=== PATIENT | female | born 1945 | race Caucasian/White ===

== ENCOUNTER → 2018-02-17 | Outpatient (CLI) | payer MEDICARE, OTHER ==
--- NOTE | 2018-02-17 15:25 | RAD ---
EXAM: Right hip, 2 views. HISTORY: Pain. COMPARISON: None. FINDINGS: Frontal and frog-leg views of the right hip are obtained. There is severe hip joint space narrowing with severe subchondral sclerosis, large superior acetabular and femoral head subchondral cysts and marginal osteophytosis. There is associated remodeling of the superior acetabulum and femoral head no fracture is seen. IMPRESSION: Severe end-stage osteoarthritis of the right hip with associated bony remodeling. Electronically signed by: Archana Rowe MD (02/17/2018 3:21 PM) [facility]
== END | disposition home or self-care (01) ==
LOC: RAD 14:32
PROVIDERS: ATTEND Family Medicine
DX: M16.11 Unilateral primary osteoarthritis, right hip (principal); M85.68 Other cyst of bone, other site
CPT/HCPCS: 73502

== ENCOUNTER → 2018-03-15 | Outpatient (CLI) | payer MEDICARE, OTHER ==
[~2018-03-15] MED LIST: BISO5TAB2 PO; DIPH25CA58 PO; HYDR-971 PO; IMIP25TA35 PO; NAPR220T70 PO; NIFE60TA PO; OMEP40CA5 PO; POTA10TA12 PO
[2018-03-15 09:34] LABS: BASO # 0.1 x10^3/uL (0.0-0.2); BASO % 1 % (0-3); EOS # 0.1 x10^3/uL (0.0-0.7); EOS % 2 % (0-3); HEMATOCRIT 40.3 % (36.0-47.0); HEMOGLOBIN 13.7 g/dL (12.0-15.5); LYMPH # 1.5 x10^3/uL (1.0-4.8); LYMPH % 23 % (24-48); MEAN CORPUSCULAR HEMOGLOBIN 31 pg (25-35); MEAN CORPUSCULAR HGB CONC 34 g/dL (31-37); MEAN CORPUSCULAR VOLUME 90 fL (79-100); MONO # 0.6 x10^3/uL (0.0-1.1); MONO % 9 % (0-9); NEUT # 4.1 x10^3uL (1.8-7.7); NEUT % 66 % (31-73); PLATELET COUNT 354 x10^3/uL (140-400); RED BLOOD COUNT 4.46 x10^6/uL (3.50-5.40); RED CELL DISTRIBUTION WIDTH 13.1 % (11.5-14.5); WHITE BLOOD COUNT 6.3 x10^3/uL (4.0-11.0)
[2018-03-15 09:41] LABS: ALBUMIN 3.6 g/dL (3.4-5.0); CALCIUM 10.7 mg/dL (8.5-10.1); CREATININE 1.2 mg/dL (0.6-1.0); GFR 44.4; POTASSIUM 4.5 mmol/L (3.5-5.1)
[2018-03-15 09:44] LABS: PROTHROMBIN TIME PATIENT 12.3 SEC (11.7-14.0)
[2018-03-15 13:02] LABS: BILIRUBIN,URINE NEGATIVE (NEG); CLARITY,URINE CLEAR; COLOR,URINE YELLOW; NITRITE,URINE NEGATIVE (NEG); PH,URINE 6.5; PROTEIN,URINE NEGATIVE (NEG-TRACE)
--- NOTE | 2018-03-15 13:13 | EKG ---
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
[2018-03-15 13:21] LABS: BACTERIA,URINE 0 /HPF (0-FEW); RBC,URINE 0 /HPF (0-2); SQUAMOUS EPITHELIAL CELL,UR FEW /LPF; WBC,URINE 0 /HPF (0-4)
--- NOTE | 2018-03-15 16:39 | RAD ---
CHEST PA LATERAL Clinical indications: pre op for right hip replacement on 03/29/18 history of hypertension COMPARISON: None available. Findings: No acute lung infiltrate or pleural effusion or pulmonary edema or lung mass or pneumothorax is seen. The heart size, pulmonary vasculature, mediastinum and both albina are unremarkable. The osseous structures appear intact. Impression: No acute radiographic abnormality is seen. Electronically signed by: Kurt Aguila MD (03/15/2018 4:36 PM) [facility]
== END | disposition home or self-care (01) ==
LOC: SURGPAT 13:50
PROVIDERS: ATTEND Orthopaedic Surgery Sports Medicine
DX: Z01.818 Encounter for other preprocedural examination (principal); M16.11 Unilateral primary osteoarthritis, right hip
CPT/HCPCS: 36415; 71046; 80048; 81001; 82040; 85025; 85610; 85651; 85730; 87641; 93005

== ENCOUNTER 2018-03-29 08:28 | Inpatient (IN) | payer MEDICARE ==
[2018-03-29] VITALS (8 sets, daily range): BP systolic 105–132; BP diastolic 47–68
[~2018-03-29] VITALS: Ht 157.5 cm; Wt 83.3 kg
[~2018-03-29 08:28] MED LIST changes: +HYDROcodone/APAP 7.5/325MG 1 TAB TABLET PO PRN; +HYDROmorphone 2 MG/ML VIAL IV PRN; +IV RINGERS,LACTATED 1000ML 1,000 ML IV SCH; +LIDOCAINE 1% PF 2 ML VIAL. ID PRN; +LIDOCAINE 2% PF Vial for OR 5 ML VIAL. ONE; +MELOXICAM 7.5 MG TABLET PO PRN; +MORPHINE SULFATE 2 MG/ML VIAL. IV PRN; +MORPHINE SULFATE 5 MG, KETOROLAC 30MG VIAL 30 MG, ROPIVacaine 0.5% PF 60 ML, EPINEPHrin... INT ART ONE; +ONDANSETRON PF 4 MG/2 ML VIAL. IV PRN; +PROCHLORPERAZINE 10 MG/2 ML VIAL. IV PRN; +PROPOFOL 20 ML IV ONE; +ROCURONIUM 50 MG/5 ML VIAL. ONE; +SUCCINYLCHOLINE 200 MG/10 ML VIAL. ONE; +TRANEXAMIC ACID 1,000 MG in IV NS 50ML -- 1ST BAG INJ ONE; +TRANEXAMIC ACID 1,000 MG in IV NS 50ML -- 2ND BAG INJ ONE; +TV=100ml MORPHINE 5 MG, KETOROLAC 30 MG, ROPIVacaine 0.5% PF 60 ML, EPINEPH... INT ART ONE; +fentaNYL PF VIAL 100 MCG/2 ML VIAL IV PRN; +fentaNYL PF VIAL 100 MCG/2 ML VIAL ONE
[2018-03-29] MEDS ORDERED: oxyCODONE/APAP 5/325 1 TAB TABLET PO PRN (09:45)
[2018-03-29] MEDS ORDERED: fentaNYL PF VIAL 100 MCG/2 ML VIAL IV PRN ×2 (09:45)
[2018-03-29] MEDS ORDERED: diphenhydrAMINE 50 MG/ML VIAL IV PRN (09:45)
[2018-03-29] MEDS ORDERED: DEXTROSE 50% 25 GM / 50ML DISP.SYRIN. IV PRN (09:45)
[2018-03-29] MEDS ORDERED: PROCHLORPERAZINE 5 MG TABLET. PO PRN (09:45)
[2018-03-29] MEDS ORDERED: MORPHINE SULFATE 10 MG/ML VIAL. IV PRN (09:45)
[2018-03-29] MEDS ORDERED: METOCLOPRAMIDE HCL 10 MG/2 ML VIAL. IV PRN (09:45)
[2018-03-29] MEDS ORDERED: ACETAMINOPHEN 325 MG TABLET. PO PRN (09:45)
[2018-03-29] MEDS ORDERED: MORPHINE SULFATE 2 MG/ML VIAL. IV PRN (09:45)
[2018-03-29] MEDS ORDERED: oxyCODONE/APAP 7.5/325 1 TAB TABLET PO PRN (09:45)
[2018-03-29] MEDS ORDERED: traMADol 50 MG TABLET PO PRN ×2 (09:45)
[2018-03-29] MEDS ORDERED: PROCHLORPERAZINE 10 MG/2 ML VIAL. IV PRN (09:45)
[2018-03-29] MEDS ORDERED: HYDROcodone/APAP 10/325 1 TAB TABLET PO PRN (09:45)
[2018-03-29] MEDS ORDERED: 0.9 % SODIUM CHLORIDE 10 ML DISP.SYRIN. IV PRN (09:45)
[2018-03-29] MEDS ORDERED: MORPHINE SULFATE 4 MG/ML VIAL. IV PRN ×2 (09:45)
[2018-03-29] MEDS ORDERED: diphenhydrAMINE HCL 25 MG CAPSULE PO PRN (09:45)
[2018-03-29] MEDS ORDERED: CALCIUM CARBONATE 500 MG TAB.CHEW PO PRN (09:45)
[2018-03-29] MEDS ORDERED: ZOLPIDEM 5 MG TABLET. PO PRN (09:45)
[2018-03-29 10:14] LABS: PROTHROMBIN TIME PATIENT 12.7 SEC (11.7-14.0)
[2018-03-29] MEDS ORDERED: ONDANSETRON PF 4 MG/2 ML VIAL. ONE (10:37)
[2018-03-29] MEDS ORDERED: DEXAMETHASONE SOD PHOS 20 MG/5 ML VIAL. ONE (10:37)
[2018-03-29] MEDS ORDERED: DESFLURANE 61 TO 120 MINUTES IH ONE (10:37)
[2018-03-29] MEDS ORDERED: ePHEDrine PF IN SALINE 50 MG/5 ML DISP.SYRIN IV ONE (10:43)
--- NOTE | 2018-03-29 12:07 | PDOC4 ---
Operative Note Operative Note Date of procedure: 03/29/2018 Surgeon: Yosef Mack Furniture Stainer: Jaguar Grubbs APRN Preoperative diagnosis: Advanced primary right hip degenerative joint disease Postoperative diagnosis: Same Procedure performed: Right total hip arthroplasty Anesthesia: Gen. Blood loss: 150mL Complications: none Components inserted: [employer] size 5 standard offset anthology femoral component, 52 mm R3 shell, 36 posteriorly directed elevated polyethylene liner, 36-3 cobalt chrome femoral head Findings: Advanced primary degenerative joint disease of right hip Reason for procedure: Patient is very pleasant female who presented to my outpatient orthopedic surgery clinic with complaints of severe and progressive right hip pain. Clinical and radiographic examination were consistent with the above preoperative diagnosis and after she had tried and failed conservative therapies, we had a discussion of the risks, benefits, alternatives to total hip arthroplasty and she wished to proceed. Description of procedure: Patient was greeted in the preoperative holding area by myself for the correct extremity was verified and marked. She was taken to the operative suite and her antibiotics were started as she was brought back. Once in the operating room, she was transferred gently supine to the operating room table and underwent successful induction of a general anesthetic. She was then laid in the lateral decubitus position with the right side up and secured to the bed with our hip positioning devices. After this, the right lower extremity and hip were prepped and draped in our usual sterile fashion including an Ioban Joice. Standard preoperative timeout was then conducted. I palpated and marked surface anatomy and janae a line from my standard posterolateral skin incision. I incised skin with a scalpel and dissected subcutaneous tissue with electrocautery and cauterized bleeders as a were encountered. Identified the fascia vielka of the thigh and used a Dasilva elevator to sweep aside adherent subcutaneous tissues tissue for later identification and repair. Fascia was then incised in line with the skin incision and placed our Charnley retractor. I swept bursal tissue posteriorly and identified the quadratus and piriformis and took these down with electrocautery, taking the piriformis for later repair. The operative field was a little tight, I released 1 cm of the gluteus jeremie to help facilitate exposure.The hip capsule was identified and arthrotomy performed in a Z-plasty type incision. After this, the hip was dislocated. I palpated and marked reproducible landmarks the greater and lesser as well as center femoral head and measured for offset and length. I then measured 1 cm proximal to the lesser trochanter made my neck cut there protecting the posterior aspect with Homans. The bone was delivered from the operative field. Her acetabular was was inspected and I placed my acetabular retractors. Identified the transverse acetabular ligament and excised the soft tissue from the floor of the acetabulum. I then began reaming and reamed up to the above size corresponding to her cup, this gave a good circumferential punctate bleeding bony bed. I then irrigated out the operative field and impacted my cup in a position referencing the transverse acetabular ligament, bridgeport anatomy, and crossbar attachment. I then palpated for her greater sciatic notch and placed a screw into the posterior column. I then irrigated out the operative field again and impacted my cup in a position with the elevation directed posteriorly. After this, the acetabular retractors were removed and my proximal femoral elevator was position and the as was the leg to allow exposure of the proximal femur. I used a cookie cutting osteotome followed by canal finding reamer. I then began broaching and broached up to the above size which gave a good fit and fill. I then trialed various head and neck sizes and felt the above combination gave the best stability, range of motion and leg length. I then removed the trial femoral components and impacted my stem into position and then trialed the head sizes again. I selected the above size as I felt gave the best range of motion and stability and leg length. I then irrigated out the operative field again and reduced the hip. It should be noted I did thoroughly irrigate the femoral canal prior to impacting my stem. With the hip reduced, I again checked for any impingement, there was none. I then closed capsule with simple interrupted #2 Ethibond. Piriformis was reapproximated through drill holes. Quadratus was repaired with [id number] Ethibond, as was the gluteus jeremie tendon.. After this, injected my susan- Incisional pain injection.. The fascia was closed with running #2 Quill. Inverted interrupted 20 and a multilayered fashion was used for subcutaneous tissues tissue and running 4-0 Monocryl in a subarticular fashion was used for skin. All counts correct 2 prior wound closure. No complications. Patient tolerated surgery well. The conclusion the surgery, she was laid supine and transferred gently supine to the hospital bed and taken to PACU in stable and extubated condition. Postoperative plan is admit her to the joint center for DVT and antibiotic prophylaxis. Shell begin her rehabilitation. We will follow along with her postoperative course. YOSEF MACK II, MD Mar 29, 2018 12:07
[2018-03-29] MEDS: fentaNYL PF VIAL 100 MCG/2 ML VIAL IV PRN ×2 (12:47→13:16)
--- NOTE | 2018-03-29 12:52 | RAD ---
Indication: Postop right hip surgery TECHNIQUE: 2 views of the right hip COMPARISON: None FINDINGS: Status post total right hip hypoplastic. No acute fractures. Mild left hip joint osteoarthritis. Soft tissue emphysema in the right lateral thigh right thigh soft tissue surgical drain IMPRESSION: Expected postoperative changes from recent right hip arthroplasty. Electronically signed by: Wayne Sandra DO (03/29/2018 12:49 PM) [facility]
[2018-03-29] MEDS: IMIPRAMINE 25 MG TABLET PO SCH ×2 (14:58→20:31)
[2018-03-29] MEDS ORDERED: WARFARIN 7.5 MG TABLET. PO ONE (16:00)
[2018-03-29] MEDS: POTASSIUM CHLORIDE 10 MEQ TABLET.ER. PO SCH (16:21)
[2018-03-29] MEDS: FERROUS SULFATE 325 MG TABLET. PO SCH (16:21)
[2018-03-29] MEDS: IV DEXTROSE 5 %-0.45 % NACL 1,000 ML IV SCH ×2 (19:34→22:49)
[2018-03-29] MEDS: CELECOXIB 100 MG CAPSULE. PO SCH (20:31)
[2018-03-30 03:00] VITALS: BP 116/54
[2018-03-30 05:16] LABS: PROTHROMBIN TIME PATIENT 18.1 SEC (11.7-14.0)
[2018-03-30] MEDS: IV DEXTROSE 5 %-0.45 % NACL 1,000 ML IV SCH ×2 (05:34→15:34)
[2018-03-30] MEDS ORDERED: MAGNESIUM HYDROXIDE 2,400 MG/30 ML ORAL.SUSP. PO PRN (06:00)
[2018-03-30 06:30] VITALS: BP 133/63
[2018-03-30 06:38] VITALS: BP 103/50
[2018-03-30] MEDS: PANTOPRAZOLE 40 MG TABLET.DR. PO SCH (07:08)
--- NOTE | 2018-03-30 09:05 | CONS ---
DATE OF CONSULTATION: 03/29/2018 CHIEF COMPLAINT AND HISTORY OF PRESENT ILLNESS: This 72-year-old white female is well known to me from years of followup in the office. She is admitted at this point in time for end-stage osteoarthritis of the right hip for replacement. PAST MEDICAL HISTORY: Remarkable for hypertension, panic attacks, osteoarthritis. MEDICATIONS: Brought with the patient, listed on the computer and have been addressed. ALLERGIES: She has no known drug allergies. SOCIAL HISTORY: She is nonsmoker, nondrinker, does not abuse drugs. , lives at home with her . 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 FAMILY HISTORY: Positive for longevity. REVIEW OF SYSTEMS: Primarily remarkable only for pain in the limb with right hip pain. PHYSICAL EXAMINATION: GENERAL: She is well-developed, well-nourished white female, a little bit anxious, but in no acute distress. VITAL SIGNS: Stable. She is afebrile. HEAD, EYES, EARS, NOSE AND THROAT: Unremarkable. NECK: Supple, without adenopathy or thyromegaly. CHEST: Clear to auscultation and percussion. HEART: Regular rate and rhythm without S3, S4, or murmur. ABDOMEN: Soft, nontender, without hepatosplenomegaly or masses. EXTREMITIES: Reveal decreased range of motion of the right hip with external and internal rotation with pain caused by the same. NEUROLOGIC: She is intact. IMPRESSION: 1. End-stage osteoarthritis, right hip replacement. 2. Hypertension. 3. History of panic disorder. PLAN: She is okay for surgery. We will continue her regular home medicines postoperatively and follow along. LATASHA DOMINGUEZ MD DR: VISHAL/fran JOB#: [id number] / [id number]
[2018-03-30] MEDS: ATENOLOL 50 MG TABLET. PO SCH (09:20)
[2018-03-30] MEDS: FERROUS SULFATE 325 MG TABLET. PO SCH ×2 (09:20→17:20)
[2018-03-30] MEDS: MULTIVITAMIN with MINERAL TABLET. PO SCH (09:20)
[2018-03-30] MEDS: SENNOSIDES/DOCUSATE 8.6/50MG TABLET. PO SCH (09:20)
[2018-03-30] MEDS: CELECOXIB 100 MG CAPSULE. PO SCH ×2 (09:20→20:29)
[2018-03-30] MEDS: POTASSIUM CHLORIDE 10 MEQ TABLET.ER. PO SCH ×2 (09:20→17:20)
[2018-03-30] MEDS: IMIPRAMINE 25 MG TABLET PO SCH ×3 (09:26→20:30)
[2018-03-30] MEDS: HYDROcodone/APAP 7.5/325MG 1 TAB TABLET PO PRN ×3 (09:38→20:30)
[2018-03-30] MEDS ORDERED: WARFARIN 2 MG TABLET. PO ONE (16:00)
[2018-03-30] MEDS ORDERED: BISACODYL 10 MG SUPP.RECT. PR PRN (16:00)
--- NOTE | 2018-03-30 16:08 | PATHOLOGY ---
[facility] Accession Number: [id number] . 01 Material submitted: . RIGHT HIP BONE . 01 Clinician provided ICD-10: M16.11 . 01 Clinical history: . None provided . 02 Diagnosis: Femoral head and portion of femoral neck, right total hip arthroplasty: - Advanced degenerative arthritis, with focal subarticular cystic degeneration and fibrosis. . (JPM:business management consultant; 03/30/2018) MBR/03/30/2018 . 02 Electronically signed: . Junito Julien MD, Pathologist NPI- [id number] . 01 Gross description: . The specimen is received in formalin, labeled "Reina Thomas, right hip bone" and consists of a femoral head measuring 4.9 x 4.6 x 4.0 cm with neck measuring 1.5 x 4.3 cm. The articular surface is pink-brown, roughened, and granular with multiple areas of eburnation measuring up to 2.7 cm. Osteophytes are present. Sectioning reveals yellow-lopez cut surfaces with a cyst measuring 0.7 x 0.6 cm. A member service representative section is submitted in A1 following decalcification. (SDY; 03/29/2018) SYU/SYU . 02 Pathologist provided ICD-10: M16.11 . 02 CPT . 706382, 110688 Specimen Comment: A courtesy copy of this report has been sent to Specimen Comment: [phone], . Specimen Comment: Report sent to / DR DOMINGUEZ Specimen Comment: A duplicate report has been generated due to demographic updates. Performed at: [address], [place], [place] [id number] MD Vladimir Fitzgerald MD Phone: [phone] Performed at: 02 [facility] [address] [place], [place] [id number] MD Junito Julein MD Phone: [phone]
[2018-03-30 18:43] VITALS: BP 119/56
--- NOTE | 2018-03-31 00:03 | PN ---
DATE: 03/30/2018 LOCATION: She is room in [facility]. SUBJECTIVE: The patient is awake, alert, using the bathroom with help of the nurse, still feels like standing on her right hip. The pain has gone, but she does have decreased motion of raising and up. She voices understanding of the hip precautions. OBJECTIVE: VITAL SIGNS: Stable. GENERAL: She is afebrile. She is awake and alert. CHEST: Clear. HEART: Regular. ABDOMEN: Benign. LABORATORY DATA: INR is 1.6 this morning. IMPRESSION: 1. Status post right hip replacement. 2. Hypertension. 3. Panic disorder. PLAN: Continue present care with anticoagulation ongoing, therapies encouraged as well as the hip precautions. LATASHA DOMINGUEZ MD DR: VISHAL/fran JOB#: [id number] / [id number]
[2018-03-31 05:37] LABS: HEMATOCRIT 30.6 % (36.0-47.0); HEMOGLOBIN 10.6 g/dL (12.0-15.5)
[2018-03-31 05:47] LABS: PROTHROMBIN TIME PATIENT 19.1 SEC (11.7-14.0)
[2018-03-31] MEDS: PANTOPRAZOLE 40 MG TABLET.DR. PO SCH (06:45)
--- NOTE | 2018-03-31 07:23 | PDOC ---
ORTHO PROGRESS NOTES Subjective Patient with no new complaints this morning. States pain rated at 1. Post-op Day: 2 Procedure R DYLAN Vitals Vital Signs Date Time Temp Pulse Resp B/P (MAP) Pulse Ox O2 Delivery O2 Flow Rate FiO2 03/30/18 21:30 18 Room Air 03/30/18 20:30 96 03/30/18 18:43 97.5 80 119/56 (77) 97.5 Labs Laboratory Tests Test 03/29/18 09:25 03/30/18 04:25 03/31/18 04:45 Prothrombin Time 12.7 SEC (11.7-14.0) 18.1 SEC (11.7-14.0) 19.1 SEC (11.7-14.0) Prothromb Time International Ratio 1.0 (0.8-1.1) 1.6 (0.8-1.1) 1.7 (0.8-1.1) Activated Partial Thromboplast Time 22 SEC (24-38) Hemoglobin 10.6 g/dL (12.0-15.5) Hematocrit 30.6 % (36.0-47.0) Mean Corpuscular Hemoglobin Concent 35 g/dL (31-37) Laboratory Tests Test 03/31/18 04:45 Hemoglobin 10.6 g/dL (12.0-15.5) Hematocrit 30.6 % (36.0-47.0) Mean Corpuscular Hemoglobin Concent 35 g/dL (31-37) Prothrombin Time 19.1 SEC (11.7-14.0) Prothromb Time International Ratio 1.7 (0.8-1.1) Assessment and Plan N/V intact distally. dressing dry and intact. moviing toes and feet on request. calf soft and nontender continue PT home tomorrow. DALE QUINONEZ APRN Mar 31, 2018 07:23
[2018-03-31 07:24] VITALS: BP 109/56
[2018-03-31] MEDS: FERROUS SULFATE 325 MG TABLET. PO SCH ×2 (08:45→16:47)
[2018-03-31] MEDS: SENNOSIDES/DOCUSATE 8.6/50MG TABLET. PO SCH (08:45)
[2018-03-31] MEDS: MULTIVITAMIN with MINERAL TABLET. PO SCH (08:45)
[2018-03-31] MEDS: IMIPRAMINE 25 MG TABLET PO SCH ×3 (08:45→21:18)
[2018-03-31] MEDS: CELECOXIB 100 MG CAPSULE. PO SCH ×2 (08:46→21:18)
[2018-03-31] MEDS: HYDROcodone/APAP 7.5/325MG 1 TAB TABLET PO PRN ×2 (08:48→12:53)
[2018-03-31] MEDS: POTASSIUM CHLORIDE 10 MEQ TABLET.ER. PO SCH ×2 (08:49→16:47)
[2018-03-31] MEDS: ATENOLOL 50 MG TABLET. PO SCH (08:49)
[2018-03-31] MEDS ORDERED: WARFARIN 3 MG TABLET. PO ONE (16:00)
--- NOTE | 2018-03-31 16:30 | DISCH ---
DISCHARGE INSTRUCTIONS Condition on Discharge Condition on Discharge: Stable Activity After Discharge Activity Instructions for Disc: Activity as tolerated Bathing Instructions: Shower-keep dressing dry Weight Bearing Status after Di: As tolerated Diet after Discharge Diet after Discharge: Regular Wound Incision Care Wound/Incision Care: Ice to area for comfort, Keep wound/cast CDI, Do not change dressing Contacting the DRBimal after DC Call your doctor for: Concerns you may have Follow-Up Follow up with: [facility] in 2wks Warfarin Follow-Up Warfarin Follow UP: Pharmacy BAYLEE MACK II, MD Mar 31, 2018 16:30
--- NOTE | 2018-03-31 16:48 | PN ---
DATE: 03/31/2018 She is in room 454. SUBJECTIVE: The patient is awake and alert, getting ready to eat breakfast, feels a lot of tightness in her hip, but the pain preoperatively has gone, did well with therapy yesterday. OBJECTIVE: VITAL SIGNS: Stable. She is afebrile. GENERAL: She is awake and alert. CHEST: Clear. HEART: Regular. ABDOMEN: Benign. NEUROVASCULAR: The right leg is intact. LABORATORY DATA: Hemoglobin is 10.6. INR is 1.7. IMPRESSION: 1. Status post right total hip replacement. 2. Hypertension. 3. Panic disorder. PLAN: Encourage therapy. Continue anticoagulation. Anticipate discharge probably as early as tomorrow. LATASHA DOMINGUEZ MD DR: VISHAL/fran JOB#: [id number] / [id number]
[2018-03-31 18:13] VITALS: BP 126/43
[2018-04-01 06:00] VITALS: BP 103/48
[2018-04-01] MEDS: PANTOPRAZOLE 40 MG TABLET.DR. PO SCH (06:11)
[2018-04-01 07:09] LABS: HEMATOCRIT 31.8 % (36.0-47.0); HEMOGLOBIN 10.9 g/dL (12.0-15.5)
[2018-04-01 07:32] LABS: PROTHROMBIN TIME PATIENT 19.1 SEC (11.7-14.0)
[2018-04-01] MEDS: CELECOXIB 100 MG CAPSULE. PO SCH (08:48)
[2018-04-01] MEDS: POTASSIUM CHLORIDE 10 MEQ TABLET.ER. PO SCH (08:48)
[2018-04-01] MEDS: FERROUS SULFATE 325 MG TABLET. PO SCH (08:48)
[2018-04-01] MEDS: MULTIVITAMIN with MINERAL TABLET. PO SCH (08:49)
[2018-04-01] MEDS: IMIPRAMINE 25 MG TABLET PO SCH ×2 (08:54→14:23)
[2018-04-01] MEDS: SENNOSIDES/DOCUSATE 8.6/50MG TABLET. PO SCH (08:55)
--- NOTE | 2018-04-01 08:55 | PDOC ---
ORTHO PROGRESS NOTES Subjective She feels comfortable and ready to go home. She called her pharmacy to discuss anticoagulation pricing. Vitals Vital Signs Date Time Temp Pulse Resp B/P (MAP) Pulse Ox O2 Delivery O2 Flow Rate FiO2 04/01/18 06:00 97.6 70 20 103/48 (66) 97 Room Air 97.6 Labs Laboratory Tests Test 03/31/18 04:45 04/01/18 06:20 Hemoglobin 10.6 g/dL (12.0-15.5) 10.9 g/dL (12.0-15.5) Hematocrit 30.6 % (36.0-47.0) 31.8 % (36.0-47.0) Mean Corpuscular Hemoglobin Concent 35 g/dL (31-37) 34 g/dL (31-37) Prothrombin Time 19.1 SEC (11.7-14.0) 19.1 SEC (11.7-14.0) Prothromb Time International Ratio 1.7 (0.8-1.1) 1.7 (0.8-1.1) Laboratory Tests Test 04/01/18 06:20 Hemoglobin 10.9 g/dL (12.0-15.5) Hematocrit 31.8 % (36.0-47.0) Mean Corpuscular Hemoglobin Concent 34 g/dL (31-37) Prothrombin Time 19.1 SEC (11.7-14.0) Prothromb Time International Ratio 1.7 (0.8-1.1) Notes She is awake and alert and sitting in chair. Dressing is intact. Normal motor and sensation distally in her right lower extremity is present. Assessment and Plan She will be discharged home. We will get her started on outpatient PT. She will be on Xarelto for 1 month BAYLEE MACK II, MD Apr 01, 2018 08:55
[2018-04-01] MEDS: ATENOLOL 50 MG TABLET. PO SCH (08:56)
--- NOTE | 2018-04-01 08:56 | PDOC3 ---
Discharge Summary Visit Information Date of Admission: Mar 29, 2018 Date of Discharge: Apr 01, 2018 Admitting Diagnosis: as advanced primary right hip degenerative joint disease Brief Hospital Course Allergies Allergies Coded Allergies Type Severity Reaction Last Updated Verified No Known Drug Allergies 03/29/18 No Vital Signs Vital Signs Date Time Temp Pulse Resp B/P (MAP) Pulse Ox O2 Delivery O2 Flow Rate FiO2 04/01/18 06:00 97.6 70 20 103/48 (66) 97 Room Air 97.6 Lab Results Laboratory Tests Test 03/31/18 04:45 04/01/18 06:20 Hemoglobin 10.6 g/dL (12.0-15.5) 10.9 g/dL (12.0-15.5) Hematocrit 30.6 % (36.0-47.0) 31.8 % (36.0-47.0) Mean Corpuscular Hemoglobin Concent 35 g/dL (31-37) 34 g/dL (31-37) Prothrombin Time 19.1 SEC (11.7-14.0) 19.1 SEC (11.7-14.0) Prothromb Time International Ratio 1.7 (0.8-1.1) 1.7 (0.8-1.1) Laboratory Tests Test 04/01/18 06:20 Hemoglobin 10.9 g/dL (12.0-15.5) Hematocrit 31.8 % (36.0-47.0) Mean Corpuscular Hemoglobin Concent 34 g/dL (31-37) Prothrombin Time 19.1 SEC (11.7-14.0) Prothromb Time International Ratio 1.7 (0.8-1.1) Brief Hospital Course Ms. Thomas is a 72 old female who presented to my outpatient orthopedic surgery clinic with complaints of severe and progressive pain that failed conservative therapies including injections. We had a discussion of the risks, benefits, alternatives to total hip arthroplasty and she elected to proceed. She tolerated surgery well and recovered well from anesthesia in the PACU. She was then taken to the joint Center for care and observation. She did receive PT , OT, DVT and antibiotic prophylaxis. She recovered well from surgery and remained hemodynamically stable and afebrile throughout the hospitalization. Pain was controlled on oral pain medicine at the time of discharge. Good progress was made with therapy throughout the hospitalization, and activities of daily living were accomplished by the patient. The incision was clean dry and intact and the operative extremity had normal motor and sensation. Discharge Information Condition at Discharge: Stable Follow Up: Weeks Disposition/Orders: D/C to Home Scheduled Bisoprolol Fumarate (Bisoprolol Fumarate) 5 Mg Tablet, 5 MG PO DAILY, (Reported) Entered as Reported by: LOYD ALONSO on 03/15/18906 Last Taken: Unknown Dose on 03/29/18729 Last Action: Last Taken Edited on 03/29/181057 by BERENICE VERDUZCO Imipramine Hcl (Imipramine Hcl) 25 Mg Tablet, 25 MG PO TID, (Reported) Entered as Reported by: LOYD ALONSO on 03/15/18906 Last Action: Converted on 03/29/18937 by LULY MACK MD Nifedipine (Procardia Xl) 60 Mg Tab.er.24, 60 MG PO DAILY, (Reported) Entered as Reported by: LOYD ALONSO on 03/15/18906 Last Taken: Unknown Dose on 03/29/18729 Last Action: Last Taken Edited on 03/29/181057 by BERENICE VERDUZCO Omeprazole (Omeprazole) 40 Mg Capsule.dr, 40 MG PO DAILY, (Reported) Entered as Reported by: LOYD ALONSO on 03/15/18906 Last Taken: Unknown Dose on 03/29/18729 Last Action: Last Taken Edited on 03/29/181057 by BERENICE VERDUZCO Potassium Chloride (Potassium Chloride) 10 Meq Tab.sr.24h, 10 MEQ PO BID, ( Reported) Entered as Reported by: LOYD ALONSO on 03/15/18906 Last Action: Continued on 03/29/18937 by LULY MACK MD Miscellaneous Medications Diphenhydramine Hcl (Benadryl) 25 Mg Capsule, 25 MG PO, (Reported) Entered as Reported by: LOYD ALONSO on 03/15/18906 Last Action: Continued on 03/29/18937 by LULY MACK MD Discontinued Medications Hydrocodone/Apap 5-325 ([place] 5-325 Tablet) 1 Each Tablet, 1 TAB PO PRN Q6HRS PRN for PAIN, Ref 0 (Reported) Entered as Reported by: LOYD ALONSO on 03/15/18906 Last Action: HELD on 03/29/18937 by LULY MACK MD Naproxen Sodium (Aleve) 220 Mg Tablet, 220 MG PO BID, (Reported) Entered as Reported by: LOYD ALONSO on 03/15/18906 Last Action: HELD on 03/29/18937 by LULY MACK MD Patient Instructions Patient Instructions She will be discharged home. We will get her started on outpatient therapy as soon as we are able. The patient will be on Xarelto for a month. She can weight-bear as tolerated. Worrisome signs and symptoms that should prompt a phone call to my office were discussed. We'll see her back in 2 weeks, sooner should a problem arise. BAYLEE MACK II, MD Apr 01, 2018 08:56
[2018-04-01 11:38] VITALS: BP 117/54
[2018-04-01] MEDS: HYDROcodone/APAP 7.5/325MG 1 TAB TABLET PO PRN (14:24)
--- NOTE | 2018-04-02 01:01 | PN ---
DATE: 04/01/2018 ROOM: 454 SUBJECTIVE: The patient is awake and alert, has her suitcase packed and is ready for discharge. Feels better daily and is aware of all the precautions that she needs following surgery. OBJECTIVE: VITAL SIGNS: Stable. She is afebrile. GENERAL: She is awake and alert. CHEST: Clear. HEART: Regular. ABDOMEN: Benign. NEUROVASCULAR: Right leg intact. IMPRESSION: 1. Status post right hip replacement, doing well. 2. Hypertension, controlled. PLAN: Agree with discharge, will see her in 2 weeks and follow up in the office. LATASHA DOMINGUEZ MD DR: VISHAL/fran JOB#: [id number] / [id number]
== END 2018-04-01 16:45 | disposition home or self-care (01) | DRG 470 ==
LOC: OPSVCIP 08:28 → 4 SOUTHEST 13:49
PROVIDERS: ADMIT Orthopaedic Surgery Sports Medicine; ATTEND Orthopaedic Surgery Sports Medicine
PROC: 0SR902Z Replacement of Right Hip Joint with Metal on Polyethylene Synthetic Substitute, Open Approach (ICD-10-PCS; principal; 2018-03-29 10:00)
DX: M16.11 Unilateral primary osteoarthritis, right hip (principal); I10 Essential (primary) hypertension; F41.0 Panic disorder [episodic paroxysmal anxiety]
CPT/HCPCS: 36415; 72170; 85014; 85018; 85610; 85730; 86850; 86900; 86901; 88304; 88311; A7015; J0171; J0330; J0690; J1100; J1885; J2001; J2270; J2405; J2704; J2795; J3010; J7030; J7120; 97116; 97150; 97530; 97535